=== PATIENT | female | born 1965 | race Two or more races ===

== ENCOUNTER 2017-07-02 12:36 | Emergency (ER) | payer MEDICAID, OTHER ==
[2017-07-02 12:46] VITALS: TEMP 98.7
[2017-07-02] MEDS ORDERED: Sodium Chloride 0.9% 1,000 ML IV ONE (13:07)
--- NOTE | 2017-07-02 13:09 | C.PDOC ---
History Of Present Illness 51 y/o female with history of anxiety presents to ED with complaints of epigastric pain radiating to left chest and sensation of breathlessness for 1 month. Patient reports Hysterectomy 3 months ago and had been feeling depressed since. She states she feels anxious, stressed with work and home. She has recently started new medication Lexapro 4 days ago but does not see improvement with her anxiety. Patient also admits to constipation for 1 day. Denies fever, chills, nausea or vomiting, SI or HI. Time Seen by Provider: 07/02/17 12:51 Chief Complaint (Nursing): Abdominal Pain History Per: Patient History/Exam Limitations: no limitations Onset/Duration Of Symptoms: Days Current Symptoms Are (Timing): Still Present Location Of Pain/Discomfort: Epigastric Past Medical History Reviewed: Historical Data, Nursing Documentation, Vital Signs Vital Signs: Last Vital Signs Temp 98.7 F 07/02/17 12:43 Pulse 78 07/02/17 16:25 Resp 20 07/02/17 16:25 BP 138/74 07/02/17 16:25 Pulse Ox 99 07/07/17 11:55 - Medical History PMH: Anemia, Anxiety, Gastritis Surgical History: No Surg Hx Family History: States: No Known Family Hx - Social History Hx Tobacco Use: No Hx Alcohol Use: No Hx Substance Use: No - Immunization History Hx Tetanus Toxoid Vaccination: No Hx Influenza Vaccination: No Hx Pneumococcal Vaccination: No Review Of Systems Constitutional: Negative for: Fever, Chills Cardiovascular: Positive for: Chest Pain Respiratory: Positive for: Shortness of Breath Gastrointestinal: Positive for: Abdominal Pain. Negative for: Nausea, Vomiting Skin: Negative for: Rash Neurological: Negative for: Weakness, Numbness Psych: Positive for: Anxiety Physical Exam - Physical Exam Appears: Non-toxic, No Acute Distress Skin: Warm, Dry, No Rash Head: Atraumatic, Normacephalic Eye(s): bilateral: Normal Inspection, EOMI Oral Mucosa: Moist Neck: Normal ROM, Supple Cardiovascular: Rhythm Regular, No Murmur Respiratory: Normal Breath Sounds, No Rales, No Rhonchi, No Wheezing Gastrointestinal/Abdominal: Bowel Sounds, Soft, Tenderness (Mild epigastric on deep palpation), No Mass, No Distention, No Guarding, No Rebound Back: No CVA Tenderness Extremity: Bilateral: Atraumatic, Normal ROM Neurological/Psych: Oriented x3, Normal Speech ED Course And Treatment - Laboratory Results Result Diagrams: 07/02/17 13:24 07/02/17 13:24 Lab Interpretation: No Acute Changes ECG: Interpreted By Me, Viewed By Me ECG Rhythm: Sinus Rhythm ECG Interpretation: No Acute Changes Rate From EC O2 Sat by Pulse Oximetry: 99 (RA) Pulse Ox Interpretation: Normal - Other Rad obstructive series X-Ray: Interpreted by Me, Viewed By Me Interpretation: fecal retention, normal chest Medical Decision Making Medical Decision Making: Impression: anxiety, chest discomfort and abdominal pain Plan: Abdomen Xray, Blood work and UA ordered. Xanax, Pepcid and IV fluids administered Progress: All results reviewed and unremarkable. Patient re-examined and is sitting comfortable in bed with family at bedside. She reports feeling better. She is asking for Rx for xanax. I explained she needs to allow for time and Lexapro to work. recommend follow up with her PCP and psych. Patient is stable for discharge Disposition Counseled Patient/Family Regarding: Studies Performed, Diagnosis, Need For Followup - Disposition Disposition: HOME/ ROUTINE Disposition Time: 16:20 Condition: GOOD Additional Instructions: Vaya a santamaria mdico o la clnica en 2-5 strickland sin falta, para mas evaluacin. Adelanto joyce medicamentos tabby indicado. Volver a la dayanara de emergencia en cualquier momento si los sntomas persisten o empeoran. Instructions: Gastritis, Anxiety, Adult (DC) Forms: [facility] (Cuban) Print Language: WELSH - POA Present On Arrival: None - Clinical Impression Clinical Impression: Anxiety, Epigastric abdominal pain - PA / CATH LAB NURSE / Resident Statement MD/DO has reviewed & agrees with the documentation as recorded. - Scribe Statement The provider has reviewed the documentation as recorded by the Anjanaibe Hayder Keys All medical record entries made by the Scribe were at my direction and personally dictated by me. I have reviewed the chart and agree that the record accurately reflects my personal performance of the history, physical exam, medical decision making, and the department course for this patient. I have also personally directed, reviewed, and agree with the discharge instructions and disposition.
[2017-07-02 13:36] LABS: BASO % 0.8 % (0.0-2.0); EOS % 1.1 % (0.0-4.0); HEMOGLOBIN 12.9 g/dL (11.0-16.0); LYMPH # 1.2 K/uL (1.0-4.3); LYMPH % 25.3 % (20.0-40.0); MEAN CELL VOLUME 83.5 fL (81.0-99.0); MEAN CORPUSCULAR HEMOGLOBIN 29.4 pg (27.0-31.0); MEAN CORPUSCULAR HGB CONC 35.2 g/dL (33.0-37.0); MEAN PLATELET VOLUME 9.2 fL (7.2-11.7); MONO # 0.3 K/uL (0.0-0.8); MONO % 5.6 % (0.0-10.0); NEUT # 3.1 K/uL (1.8-7.0); NEUT % 67.2 % (50.0-75.0); NRBC % 0.1 % (0.0-2.0); RBC 4.38 Mil/uL (3.80-5.20); RED CELL DISTRIBUTION WIDTH 14.4 % (11.5-14.5); SQUAMOUS EPITHIAL 1 /hpf (0-5); URINE BACTERIA RARE (<OCC); URINE BILIRUBIN NEGATIVE (NEGATIVE); URINE BLOOD 1+ (NEGATIVE); URINE CLARITY Clear (Clear); URINE COLOR Colorless (YELLOW); URINE GLUCOSE (UA) NORMAL (Normal); URINE LEUKOCYTE ESTERASE NEG Leu/uL (Negative); URINE PROTEIN NEGATIVE (NEGATIVE); URINE UROBILINOGEN NORMAL mg/dL (0.2-1.0); WHITE BLOOD COUNT 4.6 K/uL (4.8-10.8)
[2017-07-02] MEDS ORDERED: Sodium Chloride 0.9% 1,000 ML ONE (13:36)
[2017-07-02 13:42] LABS: INR 1.1; PROTHROMBIN TIME 11.9 SECONDS (9.7-12.2)
--- NOTE | 2017-07-02 14:25 | RAD ---
PROCEDURE: Radiographs of the chest and abdomen (obstructive series) HISTORY: abd pain, constipation COMPARISON: No prior. TECHNIQUE: AP radiograph of the chest, with upright and supine radiographs of the abdomen. FINDINGS: CHEST: Lungs: No infiltrates bilaterally. No pleural effusion, pneumothorax or pulmonary vascular derangement. Cardiac size appears normal. Cardiovascular: Normal size heart. No pulmonary vascular congestion. Pleura: No pleural fluid. No pneumothorax. Other findings: None. ABDOMEN AND PELVIS: Bowel: Unremarkable bowel gas pattern. No evidence of mechanical obstruction. Free air: None. Bones: Unremarkable. Other findings: None. IMPRESSION: Unremarkable radiographs of chest and abdomen. No evidence of mechanical bowel obstruction.
[2017-07-02 16:17] LABS: ALB/GLOB RATIO 1.3 (1.0-2.1); ALBUMIN 4.5 g/dL (3.5-5.0); ALT/SGPT 26 U/L (9-52); AST/SGOT 32 U/L (14-36); BLOOD UREA NITROGEN 8 mg/dL (7-17); CALCIUM 9.1 mg/dl (8.6-10.4); GFR AFRICAN-AMERICAN > 60; GFR NON-AFRICAN AMERICAN > 60; LIPASE 29 U/L (23-300)
[2017-07-02 16:26] VITALS: BP 138/74; PULSE 78; RESP 20
[2017-07-02 18:52] VITALS: O2SAT 99
--- NOTE | 2017-07-04 11:46 | CARD ---
APPROVED REPORT EKG Measurement Heart [id number] <Conclusion> Normal sinus rhythm Normal ECG
== END 2017-07-02 16:26 | disposition home or self-care (01) ==
LOC: C.ER 12:36
DX: F41.9 Anxiety disorder, unspecified (principal); R10.13 Epigastric pain
CPT/HCPCS: 74022; 80053; 81001; 83690; 85025; 85610; 85730; 87086; 93005; 96361; 96374; 99284; J7040